=== PATIENT | male | born 1965 | race Caucasian/White ===

== ENCOUNTER 2025-08-04 22:25 | Inpatient (IN) | payer OTHER ==
--- OUTSIDE RECORDS SUMMARY | 2025-08-04 22:28 | XMS REPORT | Continuity of Care Document ---
Author Name Unknown Address [address] [facility] [address] [place] [address] Organization [facility] Address [address] [facility] [place] [address] Care Team Providers Care Sap Technical Architect Name Role Phone Pcp, Patient Does Not Have A Primary Care Physic martha DR FRANCISCO KIRK Attending Clinician Priscilla KIRK, DR SINGH Attending Clinician Priscilla Dey RN, Severiano Carl Attending Clinician Ja jaime Only, Ang Db Test Attending Clinician Isabel Trejo Attending Clinician [phone] ISABEL ESTRELLA Attending Clinician Tonja piedra Doctor Unassigned, [place] Attending Clinician U Marimar Patel Attending Clinician [phone] MARIMAR ALMENDAREZ Attending Clinician PILAR Bright Attending Clinician Tonja KIRK, DR SINGH Admitting Clinician Priscilla santos Payers Payer Name Policy Type Policy Number Effective Date Expirati on Date Source [id number] 1959 00:00:00 Problems Condition Name Condition Details Condition Category Status Onset Date Resolution Date Last Treatment Date Treating Clinician Comments Source Lumbar radiculopa thy Lumbar Radiculopa thy Problem Active 07-22 00:00: 00 [facility] Lumbar spondyloli sthesis Lumbar Spondyloli sthesis Problem Active 07-22 00:00: 00 [facility] Allergies, Adverse Reactions, Alerts Allergy Name Allergy Type Status Severity Reaction(s) Onset Date Inactive Date Treating Clinician Comments Source NO KNOWN ALLERGIE S Drug Class Active [facility] Social History Social Habit Start Date Stop Date Quantity Comments Source Exposure to SARS-CoV-2 (event) Yes [facility] Sex Assigned At 1965 00:00:00 1965 00:00:00 [facility] Smoking Status Start Date Stop Date Source Former Smoker [facility] Unknown if ever smoked [facility] Medications Ordered Medication Name Filled Medication Name Start Date Stop Date Current Medication? Ordering Clinician Indication Dosage Frequency Signature (SIG) Comments Components Source gabapentin 100 mg capsule TAKE 1 CAPSULE BY MOUTH THREE TIMES A DAY DIRECTED FOR 30 DAYS gabapentin 100 mg capsule TAKE 1 CAPSULE BY MOUTH THREE TIMES A DAY DIRECTED FOR 30 DAYS No gabapentin 100 mg capsule TAKE 1 CAPSULE BY MOUTH THREE TIMES A DAY DIRECTED FOR 30 DAYS [facility] lisinopril 20 mg-hydrochl orothiazide 12.5 mg tablet TAKE 1 TABLET BY MOUTH EVERY DAY DIRECTED lisinopril 20 mg-hydrochl orothiazide 12.5 mg tablet TAKE 1 TABLET BY MOUTH EVERY DAY DIRECTED No lisinopril 20 mg-hydroch lorothiazi de 12.5 mg tablet TAKE 1 TABLET BY MOUTH EVERY DAY DIRECTED [facility] methocarbam ol 500 mg tablet TAKE 1 TABLET BY MOUTH 3 TIMES A DAY FOR 10 DAYS methocarbam ol 500 mg tablet TAKE 1 TABLET BY MOUTH 3 TIMES A DAY FOR 10 DAYS No methocarba mol 500 mg tablet TAKE 1 TABLET BY MOUTH 3 TIMES A DAY FOR 10 DAYS [facility] methylpredn isolone 4 mg tablets in a dose pack PLEASE SEE ATTACHED FOR DETAILED DIRECTIONS methylpredn isolone 4 mg tablets in a dose pack PLEASE SEE ATTACHED FOR DETAILED DIRECTIONS No methylpred nisolone 4 mg tablets in a dose pack PLEASE SEE ATTACHED FOR DETAILED DIRECTIONS [facility] oseltamivir 75 mg capsule TAKE 1 CAPSULE BY MOUTH TWICE A DAY FOR 5 DAYS oseltamivir 75 mg capsule TAKE 1 CAPSULE BY MOUTH TWICE A DAY FOR 5 DAYS No oseltamivi r 75 mg capsule TAKE 1 CAPSULE BY MOUTH TWICE A DAY FOR 5 DAYS [facility] phentermine 37.5 mg capsule TAKE 1 TABLET BY MOUTH DAILY phentermine 37.5 mg capsule TAKE 1 TABLET BY MOUTH DAILY No phentermin e 37.5 mg capsule TAKE 1 TABLET BY MOUTH DAILY [facility] phentermine 37.5 mg tablet TAKE 1 ORAL TABLET EVERY MORNING BEFORE BREAKFAST FOR APPETITE SUPPRESSION ORAL ONCE A DAY 30 DAYS phentermine 37.5 mg tablet TAKE 1 ORAL TABLET EVERY MORNING BEFORE BREAKFAST FOR APPETITE SUPPRESSION ORAL ONCE A DAY 30 DAYS No phentermin e 37.5 mg tablet TAKE 1 ORAL TABLET EVERY MORNING BEFORE BREAKFAST FOR APPETITE SUPPRESSIO N ORAL ONCE A DAY 30 DAYS [facility] promethazin e-DM 6.25 mg-15 mg/5 mL oral syrup TAKE 5 ML (ORAL) EVERY 6 HOURS (COUGH) promethazin e-DM 6.25 mg-15 mg/5 mL oral syrup TAKE 5 ML (ORAL) EVERY 6 HOURS (COUGH) No promethazi ne-DM 6.25 mg-15 mg/5 mL oral syrup TAKE 5 ML (ORAL) EVERY 6 HOURS (COUGH) [facility] tadalafil 20 mg tablet TAKE 1 TABLET BY MOUTH 1 TO 2 HOURS PRIOR TO INTIMACY NEEDED tadalafil 20 mg tablet TAKE 1 TABLET BY MOUTH 1 TO 2 HOURS PRIOR TO INTIMACY NEEDED No tadalafil 20 mg tablet TAKE 1 TABLET BY MOUTH 1 TO 2 HOURS PRIOR TO INTIMACY NEEDED [facility] tizanidine 4 mg tablet TAKE 1 TABLET BY MOUTH EVERY 6 TO 8 HOURS NEEDED - MUSCLE SPASTICITY tizanidine 4 mg tablet TAKE 1 TABLET BY MOUTH EVERY 6 TO 8 HOURS NEEDED - MUSCLE SPASTICITY No tizanidine 4 mg tablet TAKE 1 TABLET BY MOUTH EVERY 6 TO 8 HOURS NEEDED - MUSCLE SPASTICITY [facility] acetaminoph en 300 mg-codeine 30 mg tablet TAKE 1 TABLET BY MOUTH THREE TIMES A DAY FOR 10 DAYS acetaminoph en 300 mg-codeine 30 mg tablet TAKE 1 TABLET BY MOUTH THREE TIMES A DAY FOR 10 DAYS No acetaminop hen 300 mg-codeine 30 mg tablet TAKE 1 TABLET BY MOUTH THREE TIMES A DAY FOR 10 DAYS [facility] anastrozole 1 mg tablet TAKE 1/2 TO 2 TABS BY MOUTH 24-48 HRS AFTER WEEKLY INJECTION. anastrozole 1 mg tablet TAKE 1/2 TO 2 TABS BY MOUTH 24-48 HRS AFTER WEEKLY INJECTION. No anastrozol e 1 mg tablet TAKE 1/2 TO 2 TABS BY MOUTH 24-48 HRS AFTER WEEKLY INJECTION. [facility] atorvastati n 40 mg tablet TAKE 1 TABLET BY MOUTH EVERY DAY IN THE EVENING FOR 90 DAYS atorvastati n 40 mg tablet TAKE 1 TABLET BY MOUTH EVERY DAY IN THE EVENING FOR 90 DAYS No atorvastat in 40 mg tablet TAKE 1 TABLET BY MOUTH EVERY DAY IN THE EVENING FOR 90 DAYS [facility] azithromyci n 250 mg tablet TAKE 2 TABLETS BY MOUTH TODAY, THEN TAKE 1 TABLET DAILY FOR 4 DAYS DIRECTED azithromyci n 250 mg tablet TAKE 2 TABLETS BY MOUTH TODAY, THEN TAKE 1 TABLET DAILY FOR 4 DAYS DIRECTED No azithromyc in 250 mg tablet TAKE 2 TABLETS BY MOUTH TODAY, THEN TAKE 1 TABLET DAILY FOR 4 DAYS DIRECTED [facility] diclofenac sodium 75 mg tablet,ronnie yed release TAKE 1 TABLET BY MOUTH TWICE A DAY diclofenac sodium 75 mg tablet,ronnie yed release TAKE 1 TABLET BY MOUTH TWICE A DAY No diclofenac sodium 75 mg tablet,del ayed release TAKE 1 TABLET BY MOUTH TWICE A DAY [facility] etodolac 400 mg tablet TAKE 1 TABLET BY MOUTH EVERY 8 HOURS NEEDED FOR PAIN etodolac 400 mg tablet TAKE 1 TABLET BY MOUTH EVERY 8 HOURS NEEDED FOR PAIN No etodolac 400 mg tablet TAKE 1 TABLET BY MOUTH EVERY 8 HOURS NEEDED FOR PAIN [facility] Procedures Procedure Date / Time Performed Performing Clinicia n Source ASSIGNMENT OF BENEFITS 2021-11-07 19:44:53 Docto r Unassigned, [place] [facility] Encounters Start Date/Time End Date/Time Encounter Type Admission Type Attending [facility] Care Facility Care Department Encounter ID Source 2024-07-21 00:00:00 2024-07-21 00:00:00 Mikala Graves, MANAGER RELOCATION: [address] [place] [address] , Ph. [id number] [facility] [id number] [facility] 2024-04-14 00:00:00 2024-04-14 00:00:00 Outpatient FRANCISCO DENNIS [facility] [id number] [facility] 2021-11-08 00:00:00 2021-11-08 00:00:00 Telephone Severiano Dey [facility] [id number] [facility] 2021-11-07 13:45:00 2021-11-07 14:00:00 Laboratory Only Only, Ang Db Test Delores [facility] 1..114 [id number] [facility] 2021-11-07 13:45:00 2021-11-07 13:45:00 Outpatient R DELORES, [facility] [id number] [facility] 2021-11-07 00:00:00 2021-11-07 00:00:00 Orders Only Doctor Unassigned, [place] [facility] [id number] [id number] [facility] 2021-11-01 12:45:00 2021-11-01 13:00:00 Laboratory Only Only, Ang Db Test [facility] [id number] [facility] 2021-11-01 12:45:00 2021-11-01 12:45:[address] [facility] [id number] [facility] 2021-11-01 00:00:00 2021-11-01 00:00:00 Letter (Out) Doctor Unassigned, [place] [facility] [id number] [id number] [facility] 2021-10-28 09:30:00 2021-10-28 09:30:00 Outpatient PILAR HOFFMAN [facility] [id number] [facility]
[2025-08-04] MEDS ORDERED: ONDANSETRON 4 MG/2 ML VIAL ONE (22:50)
[2025-08-04] MEDS ORDERED: MORPHINE 4 MG/ML SYR ONE (22:51)
[2025-08-04] MEDS ORDERED: NA CHLORIDE 0.9% 1,000 ML ONE (22:51)
[2025-08-04 23:35] LABS: Absolute Lymphocytes (CBC) 0.7 K/uL (0.7-4.9); Hematocrit 53.4 % (39.6-49.0); Hemoglobin 17.9 g/dL (13.6-17.9); MCH 33.2 pg (27.0-35.0); MCHC 33.5 g/dL (32.0-36.0); MCV 99.0 fL (80-100); MPV 7.9 fL (7.6-11.3); Nucleated RBC Absolute Count 0.0 (0-0); Nucleated Red Blood Cells % 0.1 % (0-0); RBC Red Blood Cell Count 5.39 M/uL (4.33-5.43); White Blood Count 13.90 thou/uL (4.3-10.9)
[2025-08-04 23:46] LABS: ALT/SGPT 21.0 U/L (16-61); AST/SGOT 14.0 U/L (15-37); Albumin 3.0 g/dL (3.4-5.0); Albumin/Globulin Ratio 0.8 (1.1-1.8); Alkaline Phosphatase 48.0 U/L (45-117); Anion Gap 12.8 mEq/L (5.0-15.0); BUN Blood Urea Nitrogen 16.0 mg/dL (7-18); Globulin 4.0 g/dL (2.3-3.5); Glucose Level 137.0 mg/dL (74-106); Lipase 24.0 U/L (13-75); Potassium 3.8 mEq/L (3.5-5.1)
[2025-08-05 00:02] LABS: Blood Morphology Comment NOT SEEN (NOT SEEN); Differential Total Cells Count 100; Segmented Neutrophils 67 % (40-80)
[2025-08-05 01:42] LABS: PT Prothrombin Time 15.2 SECONDS (10-13.0); PTT, Activated Partial Thromb 27.3 SECONDS (27.2-37.4); Protime INR 1.36
[2025-08-05] MEDS ORDERED: NA CHLORIDE 0.9% 1,000 ML ONE (02:23)
[2025-08-05] MEDS ORDERED: NA CHLORIDE 0.9% 50 ML ONE (02:37)
[2025-08-05] MEDS ORDERED: METRONIDAZOLE 500mg IVPB 500 MG/100 ML BAG IV ONE (02:37)
[2025-08-05] MEDS ORDERED: CEFTRIAXONE 1000 MG/VIAL ONE (02:37)
--- NOTE | 2025-08-05 02:44 | RAD REPORT ---
CLINICAL HISTORY: Abdominal pain. COMPARISON: CT Abdomen Pelvis 02/18/2019. TECHNIQUE: CT ABDOMEN PELVIS WITH IV CONTRAST on 08/04/2025 10:35 PM CDT This exam was performed according to our departmental dose-optimization program, which includes autom ated exposure control, adjustment of the mA and/or kV according to patient size and/or use of iterative reconstruction technique. FINDINGS: Lower lungs are clear. Abdomen: The liver is normal in appearance. There is no biliary dilatation. Gallbladder is normal in appearance. There is a small hiatal hernia. The pancreas and spleen are normal in appearance. Adrenal glands are normal. There are multiple bilateral renal cysts measuring up to 3.3 cm. There is no hydronephrosis. Abdominal aorta is normal in course and caliber without aneurysm. There is no free air. There is no r etroperitoneal adenopathy. Pelvis: There is moderate distal colonic diverticulosis. Urinary bladder is unremarkable. There is sm all amount of free pelvic fluid. The appendix is dilated measuring up to 1.4 cm with moderate surrounding inflammation. Skeleton: There are no acute osseous findings. No suspicious bony lesions. IMPRESSION: Acute appendicitis. Electronically signed by: Mitch Tao MD 08/05/2025 02:28 AM CDT RP Due to temporary technical issues with the PACS/Concuity reporting system, reports are being manny d by the in-house radiologist without review as a courtesy to ensure prompt reporting the interpreting radiologist is fully responsible for the content of the report. Transcribed Date/Time: 08/05/2025 2:43 AM
--- NOTE | 2025-08-05 03:13 | EDPHYS ---
Physician Documentation [facility] Name: Dustin Brothers Age: 59 yrs Sex: Male : 1965 Arrival Date: 08/04/2025 Time: 22:25 Bed 4 Private MD: ED Physician Angel Rogers HPI: 08/04 22:40 This 59 yrs old Male presents to ER via Wheelchair with complaints of Abdominal Pain. sb4 22:40 The patient presents with abdominal pain that is diffuse. Onset: The symptoms/episode sb4 began/occurred just prior to arrival. The symptoms do not radiate. Associated signs and symptoms: none. Patient reports diffuse abdominal pain that began this evening. States that he ate 4 egg rolls from [employer] and his pain began shortly after. Denies any nausea vomiting diarrhea. Denies any prior abdominal issues. Only medical history is high blood pressure and hyperlipidemia. states that he has been under a lot of stress and filed for divorce today. Historical: - Allergies: 22:35 No Known Allergies; cp4 - Immunization history:: Adult Immunizations up to date. - Infectious Disease History:: Denies. - Social history:: Smoking status: Patient denies any tobacco usage or history of. ROS: 22:40 Constitutional: Negative for fever, chills, and weight loss, sb4 22:40 Abdomen/GI: Positive for abdominal pain, 22:40 All other systems are negative, Exam: 22:40 Head/Face: Normocephalic, atraumatic. Eyes: Extra-ocular motions intact. Periorbital sb4 areas with no swelling, redness, or edema. ENT: Mucous membranes moist. Cardiovascular: Regular rate and rhythm with a normal S1 and S2. Respiratory: No increased work of breathing, no retractions or nasal flaring. Skin: Warm, dry with normal turgor. Normal color with no rashes, no lesions, and no evidence of cellulitis. 22:40 Constitutional: The patient appears alert, awake, in obvious pain, uncomfortable, 22:40 Abdomen/GI: Inspection: distension, Bowel sounds: diminished, in the right lower quadrant and left lower quadrant, Palpation: mild abdominal tenderness, in all quadrants, Vital Signs: 22:33 BP 94 / 80; Pulse 106; Resp 20; Temp 99.4; Pulse Ox 98% ; Weight 90.72 kg; Height 5 ft. cp4 10 in. ; Pain 8/10; 23:00 BP 137 / 81; Pulse 106; Resp 20; Pulse Ox 98% on R/A; kd3 23:34 BP 148 / 79; Pulse 108; Resp 19; Pulse Ox 98% on 4 lpm NC; kd3 08/05 01:19 BP 137 / 77; Pulse 107; Resp 19; Pulse Ox 95% on 4 lpm NC; kd3 04:44 BP 110 / 70; Pulse 93; Resp 16; Pulse Ox 93% on R/A; al5 08/04 22:33 Body Mass Index 28.70 (90.72 kg, 177.8 cm) cp4 08/04 22:33 Pain Scale: Adult cp4 MDM: 08/04 22:29 Medical Screening Exam initiated sb4 08/05 01:24 Differential diagnosis: appendicitis, bowel obstruction, cholecystitis, Cholelithiasis, sb4 diverticulitis, non-specific abd pain, pancreatitis, Peptic Ulcer Disease, Ureterolithiasis. Historians other than the Patient: Spouse/Significant Other: . 03:06 ED course: FINDINGS: Lower lungs are clear. Abdomen: The liver is normal in appearance. sp4 There is no biliary dilatation. Gallbladder is normal in appearance. There is a small hiatal hernia. The pancreas and spleen are normal in appearance. Adrenal glands are normal. There are multiple bilateral renal cysts measuring up to 3.3 cm. There is no hydronephrosis. Abdominal aorta is normal in course and caliber without aneurysm. There is no free air. There is no retroperitoneal adenopathy. Pelvis: There is moderate distal colonic diverticulosis. Urinary bladder is unremarkable. There is small amount of free pelvic fluid. The appendix is dilated measuring up to 1.4 cm with moderate surrounding inflammation. Skeleton: There are no acute osseous findings. No suspicious bony lesions. IMPRESSION: Acute appendicitis. Electronically signed by: Mitch Tao MD 08/05/2025 02:28 AM. 03:12 Data reviewed: vital signs, nurses notes, lab test result(s), radiologic studies, CT sp4 scan. 03:13 Consideration of Admission/Observation Patient was admitted/placed on observation. sp4 Escalation of care including admission/observation considered. Management of patient was discussed with the following: Hospitalist: Ildefonso. [employer] Supervisor: Davie [facility] . 10/07 22:35 Order name: CBC with Diff; Complete Time: 00:11 sb4 08/04 22:35 Order name: CMP; Complete Time: 23:47 sb4 08/04 22:35 Order name: Lipase; Complete Time: 23:47 sb4 08/04 23:45 Order name: Manual Differential; Complete Time: 00:11 EDMS 08/05 00:43 Order name: Blood Culture Adult (2) sb4 08/05 00:43 Order name: Lactate w/ 2H reflex if indic.; Complete Time: 01:57 sb4 08/05 00:43 Order name: Protime (+inr); Complete Time: 01:43 sb4 08/05 00:43 Order name: Ptt, Activated; Complete Time: 01:43 sb4 08/05 03:37 Order name: CBC with Automated Diff EDMS 08/05 03:37 Order name: CBC with Automated Diff EDMS 08/05 03:37 Order name: Comprehensive Metabolic Panel EDMS 08/05 03:37 Order name: Comprehensive Metabolic Panel EDMS 08/04 22:35 Order name: CT Abd/Pelvis - IV Contrast Only; Complete Time: 03:06 sb4 08/04 22:35 Order name: IV Saline Lock; Complete Time: 23:01 sb4 08/04 22:35 Order name: Labs collected and sent; Complete Time: 23:01 4 08/05 02:23 Order name: NPO; Complete Time: 04:12 sp4 Administered Medications: 08/04 23:01 Drug: Ondansetron IVP 4 mg IVP once; over 2 minutes Route: IVP; Site: right upper arm; kd3 08/05 01:48 Follow up: Response: No adverse reaction [facility] 08/04 23:01 Drug: morphine IVP or IV 4 mg IVP once over 4 mins Route: IVP; Infused Over: 4 mins; kd3 Site: right upper arm; 08/05 01:48 Follow up: Response: No adverse reaction [facility] 08/04 23:01 Drug: NS 0.9% IV 1000 ml IV at 1 bolus Per protocol; to be given as a bolus over 60 kd3 minutes Route: IV; Rate: 1 bolus; Site: right upper arm; 08/05 02:30 Follow up: Response: No adverse reaction; IV Status: Completed infusion; IV Intake: al5 1000ml 02:27 Drug: NS 0.9% IV 1000 ml IV at 1000 ml once; to be given as a bolus over 60 minutes al5 Route: IV; Rate: 1000 ml; Site: right upper arm; 03:40 Follow up: Response: No adverse reaction; IV Status: Completed infusion; IV Intake: al5 1000ml 02:43 Drug: Rocephin - Rocephin (cefTRIAXone) IVPB 1 grams IVPB once over 30 mins; (mix in 50 al5 mL NS) Route: IVPB; Infused Over: 30 mins; Site: right upper arm; 03:21 Follow up: Response: No adverse reaction; IV Status: Completed infusion; IV Intake: [id number] 03:21 Drug: metroNIDAZOLE IVPB 500 mg 100 ml IVPB at 200 ml/hr once over 30 mins Volume: 100 al5 ml; Route: IVPB; Rate: 200 ml/hr; Infused Over: 30 mins; Site: right upper arm; 04:30 Follow up: Response: No adverse reaction; IV Status: Completed infusion al5 04:00 Drug: D5-1/2 NS IV 1000 ml IV at 125 ml/hr continuous Route: IV; Rate: 125 ml/hr; Site: kb4 left antecubital; 04:45 Follow up: Response: No adverse reaction; IV Status: Infusion continued upon admission al5 Disposition: 03:11 Co-signature as Attending Physician, Angel Rogers MD I agree with the assessment sp4 and plan of care. I reviewed the patient's care provided by Advanced Practice Provider \T\ agree w/ the diagnosis \T\ care plan. I personally saw the pt \T\ performed a substantive portion of the visit, incldng all aspects of the (History/Exam/Medical Decision Making). Disposition Summary: 08/05/25 03:12 Hospitalization Ordered Notes: Hospitalization Status: Observation sp4 Provider: Burke Fregoso spMarquise Location: Telemetry/MedSurg (observation) sp4 Condition: Stable sp4 Problem: new sp4 Symptoms: have improved sp4 Bed/Room Type: Standard sp4 Room Assignment: 424(08/05/25 04:05) al5 Diagnosis - Acute appendicitis sp4 Forms: - Medication Reconciliation Form sp4 - SBAR form sp4 - Leadership Thank You Letter sp4 Signatures: [facility] Zoya Sandoval, RN RN kd3 Ernestine Demarco, PA-C PA-C sb4 Angel Rogers MD MD sp4 Norah Monterroso cp4 Lakshmi Bates RN RN al5 Vivi Degroot RN RN kb4 Corrections: (The following items were deleted from the chart) 00:44 00:44 BLOOD CULTURE*+BA.LAB.BRZ ordered. EDMS EDMS 00:44 00:44 LACTATE+C.LAB.BRZ ordered. EDMS EDMS 00:44 00:44 PROTIME (+INR)+COAG.LAB.BRZ ordered. EDMS EDMS 00:44 00:44 PTT, ACTIVATED+COAG.LAB.BRZ ordered. EDMS EDMS 04:05 03:12 sp4 al5
--- NOTE | 2025-08-05 03:13 | ER ---
Nurse's Notes [facility] Name: Dustin Brothers Age: 59 yrs Sex: Male : 1965 Arrival Date: 08/04/2025 Time: 22:25 Bed 4 Private MD: Diagnosis: Acute appendicitis Presentation: 08/04 22:33 Chief complaint: Patient states: abdominal pain that started after eating eggrolls. cp4 Coronavirus screen: Client denies travel out of the [place] in the last 14 days. At this time, the client does not indicate any symptoms associated with coronavirus-19. Ebola Screen: Patient negative for fever greater than or equal to 101.5 degrees Fahrenheit, and additional compatible Ebola Virus Disease symptoms Patient denies exposure to infectious person. Patient denies travel to an Ebola-affected area in the 21 days before illness onset. No symptoms or risks identified at this time. Initial Sepsis Screen: Does the patient meet any 2 criteria? HR > 90 bpm. No. Patient's initial sepsis screen is negative. Does the patient have a suspected source of infection? No. Patient's initial sepsis screen is negative. Risk Assessment: Do you want to hurt yourself or someone else? Patient reports no desire to harm self or others. Onset of symptoms was August 04, 2025. 22:33 Method Of Arrival: Wheelchair cp4 22:33 Acuity: ISAIAH 3 cp4 Triage Assessment: 22:35 General: Appears in no apparent distress. uncomfortable, Behavior is calm, cooperative, cp4 appropriate for age. Pain: Complains of pain in abdomen. GI: Reports lower abdominal pain, upper abdominal pain, diarrhea. Historical: - Allergies: 22:35 No Known Allergies; cp4 - Immunization history:: Adult Immunizations up to date. - Infectious Disease History:: Denies. - Social history:: Smoking status: Patient denies any tobacco usage or history of. Screenin:[address] [facility] ED Fall Risk Assessment (Adult) History of falling in the last 3 months, kd3 including since admission No falls in past 3 months (0 pts) Confusion or Disorientation No (0 pts) Intoxicated or Sedated No (0 pts) Impaired Gait No (0 pts) Mobility Assist Device Used No (0 pt) Altered Elimination No (0 pt) Score/Fall Risk Level 0 - 2 = Low Risk Maintained a safe environment. Abuse screen: Denies threats or abuse. Denies injuries from another. Nutritional screening: No deficits noted. Tuberculosis screening: No symptoms or risk factors identified. Assessment: 23:01 General: Appears uncomfortable, Behavior is calm, cooperative. Pain: Complains of pain kd3 in abdomen. Neuro: Level of Consciousness is awake, alert, obeys commands, Oriented to person, place, time, situation. Cardiovascular: Capillary refill < 3 seconds Patient's skin is warm and dry. Respiratory: Airway is patent Trachea midline Respiratory effort is even, unlabored, Respiratory pattern is regular, symmetrical. 23:03 GI: Bowel sounds present X 4 quads. Abdomen is tender to palpation in left lower kd3 quadrant and right lower quadrant. 08/05 02:27 General: Appears in no apparent distress. comfortable, Behavior is calm, cooperative. al5 Pain: Complains of pain in right lower quadrant Pain currently is 3 out of 10 on a pain scale. Neuro: Level of Consciousness is awake, alert, obeys commands, Oriented to person, place, time, situation. Cardiovascular: Capillary refill < 3 seconds Patient's skin is warm and dry. Respiratory: Airway is patent Respiratory effort is even, unlabored, Respiratory pattern is regular, symmetrical. GI: Abdomen is non-distended. : No signs and/or symptoms were reported regarding the genitourinary system. EENT: No signs and/or symptoms were reported regarding the EENT system. Derm: Skin is intact, is healthy with good turgor, Skin is pink, warm \T\ dry. normal. Musculoskeletal: Circulation, motion, and sensation intact. Range of motion: intact in all extremities. 03:21 Reassessment: Patient appears in no apparent distress at this time. No changes from al5 previously documented assessment. Patient and/or family updated on plan of care and expected duration. Pain level reassessed. Patient is alert, oriented x 3, equal unlabored respirations, skin warm/dry/pink. 04:39 Reassessment: Patient appears in no apparent distress at this time. No changes from al5 previously documented assessment. Patient and/or family updated on plan of care and expected duration. Pain level reassessed. Patient is alert, oriented x 3, equal unlabored respirations, skin warm/dry/pink. Vital Signs: 08/04 22:33 BP 94 / 80; Pulse 106; Resp 20; Temp 99.4; Pulse Ox 98% ; Weight 90.72 kg; Height 5 ft. cp4 10 in. ; Pain 8/10; 23:00 BP 137 / 81; Pulse 106; Resp 20; Pulse Ox 98% on R/A; kd3 23:34 BP 148 / 79; Pulse 108; Resp 19; Pulse Ox 98% on 4 lpm NC; kd3 08/05 01:19 BP 137 / 77; Pulse 107; Resp 19; Pulse Ox 95% on 4 lpm NC; kd3 04:44 BP 110 / 70; Pulse 93; Resp 16; Pulse Ox 93% on R/A; al5 08/04 22:33 Body Mass Index 28.70 (90.72 kg, 177.8 cm) cp4 08/04 22:33 Pain Scale: Adult cp4 ED Course: 08/04 22:26 Patient arrived in ED. mr 22:26 Ernestine Demarco PA-C is PHCP. sb4 22:26 Ruth Klein MD is Attending Physician. sb4 22:35 Triage completed. cp4 22:35 Arm band placed on right wrist. Patient placed in waiting room. cp4 22:45 Angel Rogers MD is Attending Physician. sb4 22:47 Zoya Sandoval, GENA is Primary Nurse. kd3 23:00 No provider procedures requiring assistance completed. Inserted saline lock: 18 gauge kd3 in right upper arm, using aseptic technique. Blood collected. Flushed with 10 mL NS. 23:01 CBC with Diff Sent. kd3 23:01 CMP Sent. kd3 23:01 Lipase Sent. kd3 08/05 00:33 CT Abd/Pelvis - IV Contrast Only In Process Unspecified. EDMS 01:05 Inserted saline lock: 18 gauge in left upper arm, using aseptic technique. Blood kd3 collected. Flushed with 10 mL NS. 01:19 Blood Culture Adult (2) Sent. kd3 01:19 Lactate w/ 2H reflex if indic. Sent. kd3 01:19 Protime (+inr) Sent. kd3 01:19 Ptt, Activated Sent. kd3 03:11 Burke Fregoso MD is Hospitalizing Provider. sp4 04:42 Patient admitted, IV remains in place. al5 04:43 Patient has correct armband on for positive identification. Provided Education on: NPO al5 status. Administered Medications: 08/04 23:01 Drug: Ondansetron IVP 4 mg IVP once; over 2 minutes Route: IVP; Site: right upper arm; kd3 08/05 01:48 Follow up: Response: No adverse reaction [facility] 08/04 23:01 Drug: morphine IVP or IV 4 mg IVP once over 4 mins Route: IVP; Infused Over: 4 mins; kd3 Site: right upper arm; 08/05 01:48 Follow up: Response: No adverse reaction [facility] 08/04 23:01 Drug: NS 0.9% IV 1000 ml IV at 1 bolus Per protocol; to be given as a bolus over 60 kd3 minutes Route: IV; Rate: 1 bolus; Site: right upper arm; 08/05 02:30 Follow up: Response: No adverse reaction; IV Status: Completed infusion; IV Intake: al5 1000ml 02:27 Drug: NS 0.9% IV 1000 ml IV at 1000 ml once; to be given as a bolus over 60 minutes al5 Route: IV; Rate: 1000 ml; Site: right upper arm; 03:40 Follow up: Response: No adverse reaction; IV Status: Completed infusion; IV Intake: al5 1000ml 02:43 Drug: Rocephin - Rocephin (cefTRIAXone) IVPB 1 grams IVPB once over 30 mins; (mix in 50 al5 mL NS) Route: IVPB; Infused Over: 30 mins; Site: right upper arm; 03:21 Follow up: Response: No adverse reaction; IV Status: Completed infusion; IV Intake: [id number] 03:21 Drug: metroNIDAZOLE IVPB 500 mg 100 ml IVPB at 200 ml/hr once over 30 mins Volume: 100 al5 ml; Route: IVPB; Rate: 200 ml/hr; Infused Over: 30 mins; Site: right upper arm; 04:30 Follow up: Response: No adverse reaction; IV Status: Completed infusion al5 04:00 Drug: D5-1/2 NS IV 1000 ml IV at 125 ml/hr continuous Route: IV; Rate: 125 ml/hr; Site: [facility] left antecubital; 04:45 Follow up: Response: No adverse reaction; IV Status: Infusion continued upon admission al5 Medication: 08/04 23:02 VIS not applicable for this client. kd3 Intake: 08/05 02:30 IV: 1000ml; Total: 1000ml. al5 03:21 IV: 50ml; Total: 1050ml. al5 03:40 IV: 1000ml; Total: 2050ml. al5 Outcome: 03:12 Decision to Hospitalize by Provider. sp4 04:43 Admitted to Med/surg accompanied by tech, via stretcher, room 424, with chart, al5 04:43 Condition: stable 04:43 Instructed on the need for admit, 04:49 Patient left the ED. al5 Signatures: Dispatcher [employer] EDMO AndersonNatasha calle, Reg Reg mr LoriZoya, RN RN kd3 Ernestine Demarco, PA-C PA-C Angel Puentes MD MD sp4 Norah Monterroso Amanda RN RN al5 Vivi Degroot, RN RN kb4
--- NOTE | 2025-08-05 03:33 | P.HP ---
Certification for Inpatient Patient admitted to: Inpatient With expected LOS: >2 Midnights Practitioner: I am a practitioner with admitting privileges, knowledge of patient current condition, hospital course, and medical plan of care. Services: Services provided to patient in accordance with Admission requirements found in Title 42 Section 412.3 of the Code of Federal Regulations Patient History Date of Service: 08/05/25 Reason for admission: Abdominal Pain History of Present Illness: 59 yrs old Male with past medical history of hypertension and hyperlipidemia was brought to ER with abdominal pain. Abdominal pain started today. Insidious in onset. Started diffusely. Sharp 4 out of 10 in severity at the time of interview does not radiate. Not associated with any fever or chills. No nausea vomiting or diarrhea . Patient reports diffuse abdominal pain that began this evening. States that he ate 4 egg rolls from [employer] and his pain began shortly after. Denies any prior abdominal issues. Patient was assessed in the ER and was admitted for further management of acute appendicitis Allergies No Known Allergies Allergy (Unverified 03/14/16 03:06) Home medications list reviewed: Yes Home Medications: Atorvastatin Calcium 40 mg PO BEDTIME 08/05/25 Bupropion *Xl* [Wellbutrin XL] 150 mg PO DAILY 08/05/25 Lisinopril/Hydrochlorothiazide [Lisinopril-Hctz 20-12.5 mg Tab] 1 each PO DAILY 08/05/25 - Past Medical/Surgical History Past Medical History: Reviewed- Non-Contributory -: Hypertension, hyperlipidemia Past Surgical History: Reviewed- Non-Contributory - Social History Smoking Status: Never smoker Review of Systems 10-point ROS is otherwise unremarkable Physical Examination - Vital Signs Temperature: 99.4 F Blood Pressure: 94/80 Pulse: 106 Respirations: 18 Pulse Ox (%): 94 - Physical Exam General: Alert, In no apparent distress, Oriented x3 HEENT: Atraumatic, Normocephalic Neck: Supple Respiratory: Clear to auscultation bilaterally, Normal air movement Cardiovascular: Regular rate/rhythm, Normal S1 S2 Capillary refill: <2 Seconds Gastrointestinal: Soft and benign, W/out hepatosplenomegaly, Tenderness Musculoskeletal: No clubbing Integumentary: No rashes Neurological: Other (Alert awake nonfocal) Lymphatics: No axilla or inguinal lymphadenopathy - Studies Laboratory Data (last 24 hrs) 08/05/25 08/04/25 08/04/25 01:00 23:08 23:08 WBC 13.90 H Hgb 17.9 Hct 53.4 H Plt Count 314 PT 15.2 H INR 1.36 APTT 27.3 Sodium 138 Potassium 3.8 BUN 16 Creatinine 1.34 H Glucose 137 H Total Bilirubin 1.0 AST 14 L ALT 21 Alkaline Phosphatase 48 Lipase 24 Assessment and Plan - Plan Acute appendicitis Pain control CT findings noted consistent with acute appendicitis Started on IV antibiotic Surgical consult May need laparoscopic appendectomy Hypertension Antihypertensives titrated Continue home medications and titrate as needed Hyperlipidemia Continue statin GI/DVT prophylaxis Advanced directive full code Discharge Plan: Home Plan to discharge in: 48 Hours - Advance Directives Does patient have a Living Will: No Does patient have a Durable POA for Healthcare: No - Code Status/Comfort Care Code Status: Full Code Time Spent Managing Pts Care (In Minutes): 48
[2025-08-05] MEDS ORDERED: ONDANSETRON 4 MG/2 ML VIAL IV PRN (03:34)
[2025-08-05] MEDS ORDERED: ACETAMINOPHEN 325 MG TABLET PO PRN (03:34)
[2025-08-05] MEDS ORDERED: D5 0.45 NS 1,000 ML IV ONE (03:56)
[2025-08-05] MEDS: NA CHLORIDE 0.9% 1,000 ML IV SCH (04:00)
[2025-08-05] MEDS ORDERED: MORPHINE 2 MG/ML SYR IV PRN (05:35)
[2025-08-05] MEDS ORDERED: ROCURONIUM 50 MG/5 ML VIAL IV ONE ×2 (08:04→09:32)
[2025-08-05] MEDS ORDERED: NEOSTIGMINE 1 MG/ML -10 ML VIAL ONE (08:04)
[2025-08-05] MEDS ORDERED: GLYCOPYRROLATE 0.2 MG/ML SYR ONE (08:04)
[2025-08-05] MEDS ORDERED: ONDANSETRON 4 MG/2 ML VIAL ONE (08:10)
[2025-08-05] MEDS ORDERED: LIDOCAINE 2% MPF 5 ML VIAL ONE (08:10)
[2025-08-05] MEDS ORDERED: FENTANYL CITR 100 MCG/2 ML ONE ×2 (08:10→09:23)
[2025-08-05] MEDS ORDERED: MIDAZOLAM HCL 2 MG/2 ML INJ ONE (08:10)
[2025-08-05] MEDS: Ringers Lactate 1,000 ML IV ONE ×2 (08:45→10:44)
[2025-08-05] MEDS: PIPER TAZO 3.375 GM in NA CHLORIDE 0.9% 100 ML IV SCH (09:00)
--- NOTE | 2025-08-05 09:29 | CON ---
Date of Consultation: 08/05/2025 Reason For Service: Acute appendicitis. History Of Present Illness: This is a case of a 59-year-old patient comes to us with abdominal pain that started last night, started diffuse, moved to the right lower quadrant associated with nausea, n o vomiting. No diarrhea. The pain got worse. He came to the ER this morning, diagnosed with acute appendicitis and a surgical consult was obtained. Review of Systems: Denies any dysuria, hematuria, hematochezia, melena. Denies any recent traveling out of the country. Denies any family member sick at home. Family History: Noncontributory. Allergies: NONE. Past Medical History: Hypertension. No previous colonoscopies. The patient is advised about colono scopies. Physical Examination: Vital signs: Reviewed. General: The patient is awake, alert. HEENT: Pupils are equal and reactive. Anicteric. Neck: Supple. Chest: Clear. Heart: S1, S2. Abdomen: Soft and depressible. There is right lower quadrant tenderness with psoas signs positive a nd Rovsing sign positive. Genitalia and Rectal: Deferred. Extremities: Good capillary refill. Laboratory Data: Blood work shows WBC count of 13 with hemoglobin of 17.9. INR is 1.36. Potassium 3.8 and creatinine is 1.34. CAT scan shows acute appendicitis by radiologist. Assessment: This is the case of a 59-year-old patient with acute appendicitis. Benefits, alternativ es, and risks of laparoscopic, possible open appendectomy were fully explained, which include, but no t limited to infection, bleeding, damage to adjacent structures, anesthesia complication, negative ap pendix, MS, and even . He also understands this may not relieve symptoms, he might need more th an one surgical intervention. He also has been having some periumbilical pain. He thinks might have a hernia in that area. I explained to him that we may or may not be able to fix it depends on the s ize. TANIA/LIANNA Voice ID: [id number] Report ID: [id number]
--- NOTE | 2025-08-05 10:00 | P.BOP ---
Preoperative diagnosis: Acute abdominal pain . peritonitis Postoperative diagnosis: Perforated acute appendicitis with intrabdominal absc ess, peritonitis, Primary procedure: 1. Laparoscopic appendectomy with Secondary procedure: 2. drainage of intrabdominal abscess Other procedure(s): 3. Open umbilical reducible hernia repair 2 cm Estimated blood loss: <50cc Specimen: perforated appendix Findings: Perforated appendix, intrabdominal abscess with reactive proctitis, Anesthesia: General Complications: None Drain(s): VICKY drain Fluids & blood products: abdomen irrigated with 8 lites of saline Transferred to: Recovery Room Condition: Good
--- NOTE | 2025-08-05 12:46 | P.PN ---
Date of Service: 08/05/25 Subjective: RLQ pain Physical Exam: GEN: Alert, oriented, NAD CV: Regular rate and rhythm, no edema Pulm: Nonlabored respirations on room air ABD: soft, abdominal tenderness, dressing in place Neuro: Normal speech, normal affect Problem List: Acute perforated appendicitis with intraabdominal abscess and peritonitis s/p lap appy with drainage of intraabdominal abscess (08/05) Reducible umbilical hernia 2cm s/p open repair (08/05) on admission, presents with worsening abdominal pain. Started shortly after eating a meal. CT findings noted consistent with acute appendicitis Dr. Broderick is following. found to have perforated appendix, intrabdominal abscess with reactive proctitis, peritonitis during surgery today s/p lap appy with drainage of intraabdominal abscess and open repair of reducible umbilical hernia 2cm VICKY drain placed Diet and wound care per surgery Continue IV zosyn (08/05-) IV fluids, pain control VTE: SCD Code: Full Dispo: Home, several days Time Spent Managing Pts Care (In Minutes): 55
[2025-08-05 13:26] LABS: Absolute Lymphocytes (CBC) 0.4 K/uL (0.7-4.9); Hematocrit 50.1 % (39.6-49.0); Hemoglobin 16.5 g/dL (13.6-17.9); MCH 33.1 pg (27.0-35.0); MCHC 32.9 g/dL (32.0-36.0); MCV 100.4 fL (80-100); MPV 7.8 fL (7.6-11.3); Nucleated RBC Absolute Count 0.0 (0-0); Nucleated Red Blood Cells % 0.0 % (0-0); RBC Red Blood Cell Count 4.99 M/uL (4.33-5.43); White Blood Count 17.20 thou/uL (4.3-10.9)
[2025-08-05] MEDS: HYDROCODONE/APAP 5/325 MG TAB PO PRN (21:42)
[2025-08-06 06:45] LABS: Absolute Lymphocytes (CBC) 0.9 K/uL (0.7-4.9); Hematocrit 49.2 % (39.6-49.0); Hemoglobin 16.5 g/dL (13.6-17.9); MCH 33.6 pg (27.0-35.0); MCHC 33.5 g/dL (32.0-36.0); MCV 100.3 fL (80-100); MPV 8.0 fL (7.6-11.3); Nucleated RBC Absolute Count 0.0 (0-0); Nucleated Red Blood Cells % 0.0 % (0-0); RBC Red Blood Cell Count 4.91 M/uL (4.33-5.43); White Blood Count 16.20 thou/uL (4.3-10.9)
--- NOTE | 2025-08-06 07:18 | P.PN ---
Date of Service: 08/06/25 Subjective: pain tolerable with oral norco <100mL via VICKY drain overnight vitals stable tolerating ice chips, sips of water Physical Exam: GEN: Alert, oriented, NAD CV: Regular rate and rhythm, no edema Pulm: Nonlabored respirations on room air ABD: soft, abdominal soreness, dressing in place Neuro: Normal speech, normal affect Problem List: Acute perforated appendicitis with intraabdominal abscess and peritonitis s/p lap appy with drainage of intraabdominal abscess (08/05) Reducible umbilical hernia 2cm s/p open repair (08/05) on admission, presents with worsening abdominal pain. Started shortly after eating a meal. CT findings noted consistent with acute appendicitis Dr. Broderick is following. found to have perforated appendix, intrabdominal abscess with reactive proctitis, peritonitis during surgery s/p lap appy with drainage of intraabdominal abscess and open repair of reducible umbilical hernia 2cm VICKY drain placed; 90mL output overnight Diet and wound care per surgery; advance to CLD IV fluids, pain control Continue IV zosyn (08/05-) ID consulted Follow blood cultures Leukocytosis slightly improved, afebrile VTE: SCD Code: Full Dispo: Home, several days pending tolerating diet, ID recs, leukocytosis resolves Time Spent Managing Pts Care (In Minutes): 55
[2025-08-06 07:24] LABS: ALT/SGPT 16.0 U/L (16-61); AST/SGOT 11.0 U/L (15-37); Albumin 2.2 g/dL (3.4-5.0); Albumin/Globulin Ratio 0.6 (1.1-1.8); Alkaline Phosphatase 40.0 U/L (45-117); Anion Gap 9.3 mEq/L (5.0-15.0); BUN Blood Urea Nitrogen 14.0 mg/dL (7-18); Globulin 3.6 g/dL (2.3-3.5); Glucose Level 98.0 mg/dL (74-106); Potassium 4.3 mEq/L (3.5-5.1)
[2025-08-06] MEDS ORDERED: MORPHINE 4 MG/ML SYR IV PRN (10:18)
--- NOTE | 2025-08-06 12:29 | P.PN ---
Subjective Date of Service: 08/06/25 Chief Complaint: acute perforated appendicitis, intrabdominal abscess, peritonitis, colitis Subjective: Ambulating, Improving Review of Systems General: Weakness, Malaise Respiratory: Unremarkable Cardiovascular: Unremarkable Gastrointestinal: Abdominal Pain, Distention Genitourinary: Unremarkable Physical Examination - Vital Signs Temperature: 98.2 F Blood Pressure: 139/65 Pulse: 86 Respirations: 18 Pulse Ox (%): 95 - Physical Exam General: Alert, In no apparent distress, Oriented x3 HEENT: Normocephalic, PERRLA, EOMI Neck: Supple Respiratory: Clear to auscultation bilaterally Gastrointestinal: Hypoactive, Distended Musculoskeletal: No erythema, No tenderness, No warmth Integumentary: No rashes Assessment And Plan - Plan ID consult only clear as this point cont abx oob incent. Spir
[2025-08-06] MEDS: MAGNESIUM SULFATE 1 gm IVPB 1 GM/100 ML BAG IV ONE (16:46)
--- NOTE | 2025-08-06 20:09 | CON ---
History Of Present Illness: This is a 59-year-old male. I was consulted for acute appendicitis and intraabdominal abscess, status post surgical intervention. The patient has significant past medical history of hypertension and hyperlipidemia, coming in with abdominal pain worsening over a few hours. The patient was admitted for further evaluation. He underwent surgical intervention for acute perf orated appendicitis with intraabdominal abscess and peritonitis, status post laparoscopic appendectom y with drainage of intraabdominal abscess on August 05. Also, had reducible umbilical hernia, status post open repair on August 05. The patient feels slightly better. Had 2 bowel movements a day, whi ch were loose. Past Medical History: As per HPI. Social History: Nonsmoker, nondrinker. Family History: Noncontributory. Medications: Zosyn. See MARs for other medications. Allergies: NO KNOWN DRUG ALLERGIES. Review of Systems: A 10-point review was performed. Physical Examination: General: This is a 59-year-old male, lying in bed, not in any acute cardiopulmonary distress. Vital Signs: Temperature 98, pulse 87, respirations 17, blood pressure 140/69. HEENT: Unremarkable. Neck: Supple. Lungs: Basal crackles. Heart: S1, S2. Regular. Abdomen: Sluggish bowel sounds with tenderness in the right lower quadrant. VICKY drain noted. Extremities: No edema. Laboratory Data: Shows WBC 16.2, hemoglobin 16.5, platelets 235. Albumin level of 2.2. BUN of 16, creatinine 1.3. Blood cultures are showing no growth for 24 hours. Assessment And Plan: This is a safe 59-year-old male coming in with acute perforated appendicitis an d intraabdominal abscess with peritonitis, status post laparoscopic appendectomy with drainage of int raabdominal abscess done yesterday. Also, had reduction of umbilical hernia, status post open repair yesterday. 1. Leukocytosis. 2. Renal insufficiency, which has improved. 3. Moderate protein-calorie malnourishment. 4. Continue empiric antibiotic for at least 2 weeks and monitor signs of infection with WBC and fever trends. Thank you Dr. Jackson for consult. NF/MODL Voice ID: [id number] Report ID: [id number]
[2025-08-06] MEDS: LACTOBACILLUS/ACIDOPHILUS TAB PO SCH (20:44)
[2025-08-07 07:23] LABS: Magnesium 1.7 mg/dL (1.6-2.4)
[2025-08-07 07:27] LABS: Absolute Lymphocytes (CBC) 0.9 K/uL (0.7-4.9); Hematocrit 50.8 % (39.6-49.0); Hemoglobin 17.1 g/dL (13.6-17.9); MCH 33.5 pg (27.0-35.0); MCHC 33.7 g/dL (32.0-36.0); MCV 99.4 fL (80-100); MPV 8.0 fL (7.6-11.3); Nucleated RBC Absolute Count 0.0 (0-0); Nucleated Red Blood Cells % 0.0 % (0-0); RBC Red Blood Cell Count 5.11 M/uL (4.33-5.43); White Blood Count 14.20 thou/uL (4.3-10.9)
[2025-08-07 07:37] LABS: ALT/SGPT 17.0 U/L (16-61); AST/SGOT 15.0 U/L (15-37); Albumin 2.1 g/dL (3.4-5.0); Albumin/Globulin Ratio 0.5 (1.1-1.8); Alkaline Phosphatase 41.0 U/L (45-117); Anion Gap 12.7 mEq/L (5.0-15.0); BUN Blood Urea Nitrogen 7.0 mg/dL (7-18); Globulin 4.0 g/dL (2.3-3.5); Glucose Level 96.0 mg/dL (74-106); Potassium 3.7 mEq/L (3.5-5.1)
--- NOTE | 2025-08-07 12:37 | P.PN ---
Date of Service: 08/07/25 Subjective: feeling better today ambulating without issues VICKY drain with 45mL output afebrile Physical Exam: GEN: Alert, oriented, NAD CV: Regular rate and rhythm, no edema Pulm: Nonlabored respirations on room air ABD: soft, abdominal soreness, dressing in place Neuro: Normal speech, normal affect Problem List: Acute perforated appendicitis with intraabdominal abscess and peritonitis s/p lap appy with drainage of intraabdominal abscess (08/05) Reducible umbilical hernia 2cm s/p open repair (08/05) Gram positive bacteremia on admission, presents with worsening abdominal pain. Started shortly after eating a meal. CT findings noted consistent with acute appendicitis Dr. Broderick is following. found to have perforated appendix, intrabdominal abscess with reactive proctitis, peritonitis during surgery s/p lap appy with drainage of intraabdominal abscess and open repair of reducible umbilical hernia 2cm VICKY drain placed Diet and wound care per surgery; advance to [facility]D IV fluids, pain control Continue IV zosyn (08/05-) ID consulted Blood cultures prelim showing GPC in 1/4 bottles Leukocytosis slightly improved, afebrile VTE: SCD Code: Full Dispo: Home, several days pending tolerating diet, ID recs, leukocytosis resolves Time Spent Managing Pts Care (In Minutes): 55
--- NOTE | 2025-08-07 16:50 | P.PN ---
Date of Service: 08/07/25 subjective: report wbc trending down. report was able to used the restroom once today. denied NVD. afebrile Temp Pulse Resp BP Pulse Ox 98.8 F 80 18 161/82 H 98 08/07/25 16:00 08/07/25 16:00 08/07/25 16:00 08/07/25 16:00 08/07/25 16:00 Physical Exam: GEN: Alert, oriented, NAD CV: Regular rate and rhythm, no edema Pulm: Nonlabored respirations on room air ABD: soft, abdominal soreness, [address], IVCKY drain seen with very minimal light pink drainage Neuro: Normal speech, normal affect labs: wbc: 14.2, hgb 17.1, bun 7, cr 0.92. albumin 2.1 assessment and planning 1. 1/4 bottle GP bacteremia 2. Acute perforated appendicitis with intraabdominal abscess and peritonitis s/p lap appendectomy with drainage of intraabdominal abscess (08/05) 3. Reducible umbilical hernia 2cm s/p open repair (08/05) 4. leukocytosis ( improving) 5. moderate protein calorie malnourishment 1/4 bottles are growing gram positive cocci in pair and chain. awaiting for sensitivity/ recommend zosyn empirically for at least 2 weeks will continue to monitor for sign of infection with wbc and fever trend case discussed and in agreement with Dr velez
[2025-08-08 07:35] LABS: Absolute Lymphocytes (CBC) 1.0 K/uL (0.7-4.9); Hematocrit 52.2 % (39.6-49.0); Hemoglobin 17.9 g/dL (13.6-17.9); MCH 33.8 pg (27.0-35.0); MCHC 34.2 g/dL (32.0-36.0); MCV 98.9 fL (80-100); MPV 7.7 fL (7.6-11.3); Nucleated RBC Absolute Count 0.0 (0-0); Nucleated Red Blood Cells % 0.1 % (0-0); RBC Red Blood Cell Count 5.28 M/uL (4.33-5.43); White Blood Count 12.00 thou/uL (4.3-10.9)
[2025-08-08 07:45] LABS: ALT/SGPT 26.0 U/L (16-61); AST/SGOT 19.0 U/L (15-37); Albumin 2.0 g/dL (3.4-5.0); Albumin/Globulin Ratio 0.5 (1.1-1.8); Alkaline Phosphatase 42.0 U/L (45-117); Anion Gap 13.8 mEq/L (5.0-15.0); BUN Blood Urea Nitrogen 7.0 mg/dL (7-18); Globulin 4.1 g/dL (2.3-3.5); Glucose Level 95.0 mg/dL (74-106); Potassium 3.8 mEq/L (3.5-5.1)
--- NOTE | 2025-08-08 12:24 | P.PN ---
Date of Service: 08/08/25 Subjective: feeling better today no issues overnight pain improved afebrile Physical Exam: GEN: Alert, oriented, NAD CV: Regular rate and rhythm, no edema Pulm: Nonlabored respirations on room air ABD: soft, abdominal soreness, dressing in place Neuro: Normal speech, normal affect Problem List: Acute perforated appendicitis with intraabdominal abscess and peritonitis s/p lap appy with drainage of intraabdominal abscess (08/05) Reducible umbilical hernia 2cm s/p open repair (08/05) Gram positive bacteremia on admission, presents with worsening abdominal pain. Started shortly after eating a meal. CT findings noted consistent with acute appendicitis Dr. Broderick is following. found to have perforated appendix, intrabdominal abscess with reactive proctitis, peritonitis during surgery s/p lap appy with drainage of intraabdominal abscess and open repair of reducible umbilical hernia 2cm VICKY drain placed Diet and wound care per surgery; advance to [facility]D IV fluids, pain control Continue IV zosyn (08/05-) for now. Pending sensitivities ID consulted; recommending at least 2 weeks abx. Blood cultures prelim showing GPC in 1/4 bottles Leukocytosis slightly improved, afebrile VTE: SCD Code: Full Dispo: Home, several days pending tolerating diet, ID recs, leukocytosis resolves Time Spent Managing Pts Care (In Minutes): 55
[2025-08-08] MEDS: NA CHLORIDE 0.9% 1,000 ML IV SCH (15:48)
[2025-08-09 05:31] VITALS: BMI 30.3
[2025-08-09 07:19] LABS: Absolute Lymphocytes (CBC) 1.1 K/uL (0.7-4.9); Hematocrit 49.4 % (39.6-49.0); Hemoglobin 16.8 g/dL (13.6-17.9); MCH 33.4 pg (27.0-35.0); MCHC 34.1 g/dL (32.0-36.0); MCV 97.9 fL (80-100); MPV 7.9 fL (7.6-11.3); Nucleated RBC Absolute Count 0.0 (0-0); Nucleated Red Blood Cells % 0.1 % (0-0); RBC Red Blood Cell Count 5.05 M/uL (4.33-5.43); White Blood Count 11.00 thou/uL (4.3-10.9)
[2025-08-09 07:37] LABS: ALT/SGPT 36.0 U/L (16-61); AST/SGOT 24.0 U/L (15-37); Albumin 1.9 g/dL (3.4-5.0); Albumin/Globulin Ratio 0.5 (1.1-1.8); Alkaline Phosphatase 35.0 U/L (45-117); Anion Gap 8.4 mEq/L (5.0-15.0); BUN Blood Urea Nitrogen 7.0 mg/dL (7-18); Globulin 3.8 g/dL (2.3-3.5); Glucose Level 111.0 mg/dL (74-106); Potassium 3.4 mEq/L (3.5-5.1)
[2025-08-09] MEDS: NA CHLORIDE 0.9% 100 ML ONE (08:00)
--- NOTE | 2025-08-09 12:17 | P.PN ---
Date of Service: 08/09/25 Subjective: better 1 loose BM Physical Exam: GEN: Alert, oriented, NAD CV: Regular rate and rhythm, no edema Pulm: Nonlabored respirations on room air ABD: soft, nontender, dressing in place, VICKY drain in place Problem List: Acute perforated appendicitis with intraabdominal abscess and peritonitis s/p lap appy with drainage of intraabdominal abscess (08/05) Reducible umbilical hernia 2cm s/p open repair (08/05) Gram positive bacteremia on admission, presents with worsening abdominal pain. Started shortly after eating a meal. CT findings noted consistent with acute appendicitis Dr. Broderick is following. found to have perforated appendix, intrabdominal abscess with reactive proctitis, peritonitis during surgery s/p lap appy with drainage of intraabdominal abscess and open repair of reducible umbilical hernia 2cm VICKY drain placed Diet and wound care per surgery; advance to [facility] [place] repeat CT with PO contrast tomorrow IV fluids, pain control Continue IV zosyn (08/05-) for now. Pending sensitivities ID consulted; recommending at least 2 weeks abx. Blood cultures prelim showing GPC in 1/4 bottles - likely contaminant Leukocytosis slightly improved, afebrile VTE: SCD Code: Full Dispo: Home, several days pending tolerating diet, ID recs, leukocytosis resolves Time Spent Managing Pts Care (In Minutes): 55
[2025-08-10 06:39] LABS: Absolute Lymphocytes (CBC) 1.5 K/uL (0.7-4.9); Hematocrit 50.4 % (39.6-49.0); Hemoglobin 17.1 g/dL (13.6-17.9); MCH 33.3 pg (27.0-35.0); MCHC 33.8 g/dL (32.0-36.0); MCV 98.4 fL (80-100); MPV 7.6 fL (7.6-11.3); Nucleated RBC Absolute Count 0.0 (0-0); Nucleated Red Blood Cells % 0.0 % (0-0); RBC Red Blood Cell Count 5.12 M/uL (4.33-5.43); White Blood Count 10.40 thou/uL (4.3-10.9)
[2025-08-10 06:58] LABS: ALT/SGPT 38.0 U/L (16-61); AST/SGOT 22.0 U/L (15-37); Albumin 2.1 g/dL (3.4-5.0); Albumin/Globulin Ratio 0.5 (1.1-1.8); Alkaline Phosphatase 35.0 U/L (45-117); Anion Gap 9.5 mEq/L (5.0-15.0); BUN Blood Urea Nitrogen 6.0 mg/dL (7-18); Globulin 4.0 g/dL (2.3-3.5); Glucose Level 101.0 mg/dL (74-106); Potassium 3.5 mEq/L (3.5-5.1)
[2025-08-10] MEDS: POTASSIUM CL SA 10 MEQ TAB PO ONE (09:13)
[2025-08-10 10:59] VITALS: O2SAT 98
--- NOTE | 2025-08-10 11:53 | P.PN ---
Date of Service: 08/10/25 Subjective: feeling better denies pain afebrile Physical Exam: GEN: Alert, oriented, NAD CV: Regular rate and rhythm, no edema Pulm: Nonlabored respirations on room air ABD: soft, nontender, dressing in place, VICKY drain in place Problem List: Acute perforated appendicitis with intraabdominal abscess and peritonitis s/p lap appy with drainage of intraabdominal abscess (08/05) Reducible umbilical hernia 2cm s/p open repair (08/05) Suspected bacteremic contamination on admission, presents with worsening abdominal pain. Started shortly after eating a meal. CT findings noted consistent with acute appendicitis Dr. Broderick is following. found to have perforated appendix, intrabdominal abscess with reactive proctitis, peritonitis during surgery s/p lap appy with drainage of intraabdominal abscess and open repair of reducible umbilical hernia 2cm VICKY drain placed Advanced to regular diet 08/[address] with PO contrast done; pending read Suspect blood cultures contaminated. 11/01 grew GPC. Doubt true bacteremia. Continue IV zosyn (08/05-) for now. ID consulted; recommending at least 2 weeks abx Leukocytosis resolved, afebrile probiotic while on antibiotics VTE: SCD Code: Full Dispo: Home repeat CT, surgical recs Time Spent Managing Pts Care (In Minutes): 55
--- NOTE | 2025-08-10 12:01 | P.PN ---
Date of Service: 08/10/25 subjective: wbc wnl. denied NVD. afebrile.report bm is more formed than before. Temp Pulse Resp BP Pulse Ox 98.0 F 74 17 151/91 H 98 08/10/25 08:00 08/10/25 08:00 08/10/25 08:00 08/10/25 08:00 08/10/25 08:00 Physical Exam: GEN: Alert, oriented, NAD CV: Regular rate and rhythm, no edema Pulm: Nonlabored respirations on room air ABD: soft, abdominal soreness, nessa seen in two places. VICKY drain seen with very minimal light pink drainage Neuro: Normal speech, normal affect labs: wbc: 10.4, hgb 17.1, bun 6, cr 0.86. albumin 2.1 assessment and planning 1. 1/4 bottle GP bacteremia 2. Acute perforated appendicitis with intraabdominal abscess and peritonitis s/p lap appendectomy with drainage of intraabdominal abscess (08/05) 3. Reducible umbilical hernia 2cm s/p open repair (08/05) 4. leukocytosis ( improved) 5. moderate protein calorie malnourishment 1/4 bottles are growing gram positive cocci in pair and chain. awaiting for sensitivity. recommend zosyn empirically for at least 2 weeks, repeat blood culture until neg. repeat CT abdomen pending will continue to monitor for sign of infection with wbc and fever trend case discussed and in agreement with Dr velez
--- NOTE | 2025-08-10 12:56 | P.PN ---
Subjective Date of Service: 08/10/25 Chief Complaint: acute perforated appendicitis, intrabdominal abscess, peritonitis, colitis Subjective: Tolerating diet, Ambulating, Improving Review of Systems ENT: Unremarkable Respiratory: Unremarkable Cardiovascular: Unremarkable Gastrointestinal: Unremarkable Genitourinary: Unremarkable Musculoskeletal: Unremarkable Integumentary: Unremarkable Neurological: Unremarkable Physical Examination - Vital Signs Temperature: 97.7 F Blood Pressure: 171/73 Pulse: 87 Respirations: 17 Pulse Ox (%): 97 - Physical Exam General: Alert, In no apparent distress, Oriented x3, Cooperative HEENT: PERRLA, EOMI Neck: Supple Cardiovascular: Normal pulses Gastrointestinal: Soft and benign, No rebound, No guarding, Other (VICKY clear) Integumentary: No rashes, No breakdown - Studies Microbiology Data (last 24 hrs): 08/05/25 00:20 Blood - Blood Aerobic Blood Culture - Final No growth in 5 days. 08/05/25 00:20 Blood - Blood Anaerobic Blood Culture - Final No growth in 5 days. 08/05/25 01:03 Blood - Blood Aerobic Blood Culture - Final No growth in 5 days. 08/05/25 01:03 Blood - Blood Gram Stain - Final Assessment And Plan - Plan advance diet abx per ID oob incent. Spir
--- NOTE | 2025-08-10 13:50 | RAD REPORT ---
EXAMINATION: CT Abdomen Pelvis Wo Contrast CLINICAL INDICATION: Male, 59 years old. eval abscess, r/o fistula, s/p appendectomy TECHNIQUE: CT abdomen and pelvis was performed, without IV contrast, as per department protocol. Axia l, sagittal and coronal reconstructions were obtained. One or more of the following dose reduction techniques were used: Automated exposure control, adjustment of the mA and kV according to the patien t size, and iterative reconstruction. Unless otherwise specified, incidental findings do not require dedicated imaging follow-up. COMPARISON: 08/05/2025 FINDINGS: The lack of intravenous contrast limits the sensitivity of this exam for evaluation of solid visceral organs, vascular structures, and retroperitoneum. LOWER CHEST: Trace bilateral pleural effusions larger on the left. LIVER: Normal in size and contour. No focal lesion. BILIARY SYSTEM: No suspicious abnormalities. SPLEEN: Normal size. No focal lesion. PANCREAS: No mass, ductal dilation, or sim-pancreatic fluid. ADRENALS: Normal; no mass. KIDNEYS AND URETERS: Stable exophytic right upper pole 3.6 cm cyst. Normal size and contour. No hydro nephrosis. URINARY BLADDER: Normal contour. GASTROINTESTINAL TRACT: No evidence of bowel obstruction, or free air. Distal colonic diverticulosis without evidence of acute diverticulitis. APPENDIX: Surgically removed. Nonspecific mild soft tissue thickening adjacent to the suture line, wi th an ill-defined ovoid soft tissue density measuring 3.1 x 2.4 x 2.3 cm, intimately associated with adventitia of small bowel loops, does not demonstrate luminal contrast opacification. Surgical d rain present in the pelvis and right lower quadrant, caudal to the collection. Trace fluid in the deep pelvis. LYMPH NODES: No lymphadenopathy. MUSCULOSKELETAL: No acute or suspicious osseous abnormality. ADDITIONAL FINDINGS: None. IMPRESSION: Sequelae of appendicectomy. Ill-defined ovoid soft tissue density just medial to the suture material, grossly associated with small bowel adventitia, could represent a poorly loculated seroma or even a contained leak, although no luminal contrast is present within this region.. Consider short-term fo llow-up CT in 7-10 days. Trace bilateral layering pleural effusions.
[2025-08-11 06:09] LABS: Absolute Lymphocytes (CBC) 1.4 K/uL (0.7-4.9); Hematocrit 52.2 % (39.6-49.0); Hemoglobin 17.5 g/dL (13.6-17.9); MCH 33.2 pg (27.0-35.0); MCHC 33.5 g/dL (32.0-36.0); MCV 99.0 fL (80-100); MPV 7.4 fL (7.6-11.3); Nucleated RBC Absolute Count 0.0 (0-0); Nucleated Red Blood Cells % 0.1 % (0-0); RBC Red Blood Cell Count 5.27 M/uL (4.33-5.43); White Blood Count 10.60 thou/uL (4.3-10.9)
[2025-08-11 06:28] LABS: ALT/SGPT 40.0 U/L (16-61); AST/SGOT 22.0 U/L (15-37); Albumin 2.2 g/dL (3.4-5.0); Albumin/Globulin Ratio 0.5 (1.1-1.8); Alkaline Phosphatase 37.0 U/L (45-117); Anion Gap 10.5 mEq/L (5.0-15.0); BUN Blood Urea Nitrogen 8.0 mg/dL (7-18); Globulin 4.2 g/dL (2.3-3.5); Glucose Level 100.0 mg/dL (74-106); Potassium 3.5 mEq/L (3.5-5.1)
[2025-08-11] MEDS: POTASSIUM CL SA 10 MEQ TAB PO ONE (08:41)
[2025-08-11 08:48] VITALS: TEMP 98
[2025-08-11 12:19] VITALS: BP 138/71
--- NOTE | 2025-08-11 14:57 | P.DS ---
Admission Date: 08/05/25 Discharge Date: 08/11/25 Reason for Admission: acute perforated appendicitis, intrabdominal abscess, peritonitis, colitis Hospital Course: Diagnosis Acute perforated appendicitis with intraabdominal abscess and peritonitis s/p lap appy with drainage of intraabdominal abscess (08/05) Reducible umbilical hernia 2cm s/p open repair (08/05) Patient with a history of hypertension and hyperlipidemia presented to the ER with abdominal pain. CT abdomen and pelvis done in the emergency department showed acute appendicitis. Patient was hospitalized started on IV antibiotics. He was evaluated by general surgery Dr. Broderick who performed laparoscopic appendectomy noted to have perforated appendicitis, with intra-abdominal abscess and peritonitis. Abscess was drained and VICKY drain left in place. Patient had reducible umbilical hernia which was also repaired. Patient was treated with IV antibiotics after the surgery, 1 out of 4 blood culture bottles grew gram- positive cocci which is likely skin contaminant. Repeat blood culture after which showed no growth. Patient had leukocytosis which resolved. No fever. Repeat CT abdomen and pelvis showed Sequelae of appendicectomy and ill-defined ovoid soft tissue density just medial to the suture material. Patient seen and evaluated by Dr. Broderick today and patient deemed stable for discharge. Dr. Broderick plans to follow-up with patient within a week or [address] abdomen and pelvis. Infectious disease evaluated patient and recommended 2 weeks of oral Cipro and Flagyl. Patient has tolerated diet, he is ambulatory and pain is controlled. Patient is deemed stable for discharge. Vital Signs/Physical Exam: Temp Pulse Resp BP Pulse Ox 98 F 75 17 138/71 95 08/11/25 12:00 08/11/25 12:00 08/11/25 12:00 08/11/25 12:00 08/11/25 12:00 General: Alert, In no apparent distress, Oriented x3 HEENT: Mucous membr. moist/pink, Sclerae nonicteric Neck: Supple, JVD not distended Respiratory: Clear to auscultation bilaterally, Normal air movement Cardiovascular: No edema, Regular rate/rhythm, Normal S1 S2 Gastrointestinal: Normal bowel sounds, Soft and benign, Non-distended, Other (VICKY drain in place) Musculoskeletal: No swelling, No tenderness Integumentary: No rashes, No cyanosis Neurological: Normal strength at 5/5 x4 extr Laboratory Data at Discharge: WBC 10.60 thou/uL (4.3-10.9) 08/11/25 05:54 Hgb 17.5 g/dL (13.6-17.9) 08/11/25 05:54 Hct 52.2 % (39.6-49.0) H 08/11/25 05:54 Plt Count 314 thou/uL (152-406) 08/11/25 05:54 PT 15.2 SECONDS (10-13.0) H 08/05/25 01:00 INR 1.36 08/05/25 01:00 APTT 27.3 SECONDS (27.2-37.4) 08/05/25 01:00 Sodium 140 mEq/L (136-145) 08/11/25 05:54 Potassium 3.5 mEq/L (3.5-5.1) 08/11/25 05:54 BUN 8 mg/dL (7-18) 08/11/25 05:54 Creatinine 0.93 mg/dL (0.70-1.30) 08/11/25 05:54 Glucose 100 mg/dL (74-106) 08/11/25 05:54 Magnesium 1.7 mg/dL (1.6-2.4) 08/07/25 06:59 Total Bilirubin 0.4 mg/dL (0.2-1.0) 08/11/25 05:54 AST 22 U/L (15-37) 08/11/25 05:54 ALT 40 U/L (16-61) 08/11/25 05:54 Alkaline Phosphatase 37 U/L (45-117) L 08/11/25 05:54 Lipase 24 U/L (13-75) 08/04/25 23:08 Home Medications: Atorvastatin Calcium 40 mg PO BEDTIME 08/05/25 Bupropion *Xl* [Wellbutrin XL*] 150 mg PO DAILY 08/05/25 Lisinopril/Hydrochlorothiazide [Lisinopril-Hctz 20-12.5 mg Tab] 1 each PO DAILY 08/05/25 Ciprofloxacin HCl 500 mg PO BID #28 tab 08/11/25 Hydrocodone 5/APAP 325 [[place] 5/325*] 1 tab PO Q4H PRN #20 tab 08/11/25 Lactobacillus Acidophilus [Probiotic Acidophilus] 1 each PO BID #20 cap 08/11/25 metroNIDAZOLE [Flagyl] 500 mg PO Q8H #42 tab 08/11/25 New Medications: Ciprofloxacin HCl 500 mg PO BID #28 tab metroNIDAZOLE [Flagyl] 500 mg PO Q8H #42 tab Hydrocodone 5/APAP 325 [[place] 5/325*] 1 tab PO Q4H PRN #20 tab PRN Reason: Pain Scale 5-7 (Moderate) Lactobacillus Acidophilus [Probiotic Acidophilus] 1 each PO BID #20 cap Physician Discharge Instructions: Patient with a history of hypertension and hyperlipidemia presented to the ER with abdominal pain. CT abdomen and pelvis done in the emergency department showed acute appendicitis. Patient was hospitalized started on IV antibiotics. He was evaluated by general surgery Dr. Broderick who performed laparoscopic appendectomy noted to have perforated appendicitis, with intra-abdominal abscess and peritonitis. Abscess was drained and VICKY drain left in place. Patient was treated with IV antibiotics after the surgery, 1 out of 4 blood culture bottles grew gram-positive cocci which is likely skin contaminant. Repeat blood culture after which showed no growth. Patient had leukocytosis which resolved. No fever. Repeat CT abdomen and pelvis showed Sequelae of appendicectomy and ill- defined ovoid soft tissue density just medial to the suture material. Patient seen and evaluated by Dr. Broderick today and patient deemed stable for discharge. Dr. Broderick plans to follow-up with patient within a week or [address] abdomen and pelvis. Infectious disease evaluated patient and recommended 2 weeks of oral Cipro and Flagyl. Patient has tolerated diet, he is ambulatory and pain is controlled. Patient is deemed stable for discharge. Diet: AHA Activity: Ad moreno Followup: Jeffery Broderick MD [ACTIVE - CAN ADMIT] - 1-2 Weeks Lori Lucero [Primary Care Provider] - 1-2 Weeks Time spent managing pt's care (in minutes): 38
--- NOTE | 2025-08-11 18:57 | PN ---
Subjective: The patient feeling much better, being discharged today. Denies any problems. Able to eat without any problems. Objective: Vital Signs: Temperature 98, pulse 75, respirations 17, blood pressure 138/71. Lungs: Basal crackles. Heart: S1, S2. Regular. Abdomen: Soft, nontender. Bowel sounds present. Extremity: No edema. Laboratory Data: Shows WBC 10.6, hemoglobin 17.5, platelets are 314. Chemistry shows BUN of 8, crea tinine 0.9, albumin level is 2.2. Cultures are negative to date. Assessment And Plan: 1. Acute perforated appendicitis with intraabdominal abscess and peritonitis, status post lap appende ctomy with drainage of intraabdominal abscess done on 08/05. 2. Leukocytosis, improved. 3. Moderate protein-calorie malnourishment. 4. Blood culture showing gram-positive cocci in pairs and chains done on 08/05. We will recommend to change the patient to Cipro and Flagyl to be discharged home for 2 weeks. Continue supportive care and monitor signs of infection. Return to clinic if patient develops diarrhea or nausea, vomiting. We will follow the patient as needed. NF/MODL Voice ID: [id number] Report ID: [id number]
--- NOTE | 2025-08-14 21:04 | OP ---
Date of Procedure: 08/05/2025 Surgeon: Jeffery Broderick MD Preoperative Diagnoses: Acute abdominal pain, peritonitis. Postoperative Diagnoses: Perforated acute appendicitis with intraabdominal abscess, peritonitis and also umbilical hernia. Procedure: Laparoscopic appendectomy with drainage of intraabdominal abscess, open umbilical hernia repair. Estimated Blood Loss: Less than 50 cc. Specimens: Perforated appendix. Findings: Perforated appendix with intraabdominal abscess with reactive proctitis. The patient also had umbilical hernia. In intraabdominal abscess, we irrigated the area with at least 8 L of saline. Anesthesia: General plus local. Drains: VICKY #10. Complications: None. Indications: This is a case of a male, who came to us with acute abdominal pain, peritonitis, diagno sed with acute appendicitis. The benefits, alternatives, and risks were fully explained, which inclu de, but not limited to infection, bleeding, damage to adjacent structures, anesthesia complication, r ecurrence, [place], and even . He also understands this may not relieve any symptoms, he might need more than one surgical invention, recurrences of the hernia, and then he said he wants to fix as we r emove the appendix. Description Of Procedure: The patient was brought to the operating room, placed in supine position. Anesthesia was induced without complication. Abdominal area was prepped and draped in a sterile fas hion. A time-out was called. Local anesthesia was applied followed by sharp incision of the skin in the periumbilical region. Immediately, we found a hernia and the omental fat was removed, reduced i nto the abdomen after proper evaluation. We noticed that already when patient came in with pus comin g through the belly button. So, we knew at that moment that we may be dealing with a ruptured append ix. So we cleaned the fascial edges, put Vicryl #1 inside of the fascia. Kourtney trocar was carefull y introduced. Pneumoperitoneum was obtained. We placed 2 more trocars, 5 mm each one of them in the suprapubic and left lower quadrant and that is when we went and took a look at the area of the appen lizeth. It looked ruptured. It looked like abscess already. This was not just in the last few hours. It looked like fibrin present in all the intestines. So we had to irrigate this with 8 L, probably 9 L of water just to get that area clean. After that, we managed to see partial retrocecal appendix that we used the ligature to help us with the dissection, making sure the ureters, and the rest of th e intestines were protected. We noticed that the appendix was long, but the base of the appendix see ms to be spared. So, we created a window in the base of the appendix, transected that with an Endo-G IA 45 mm nonvascular. The mesoappendix was transected with the LigaSure. After that, once again, we continued with the profuse irrigation until clear. I left a VICKY drain in the right lower quadrant ar ea to help us with the management of the abdomen in the future, drained the abscess. It was exiting through one of the trocar sites. After that, we checked for hemostasis. No bleeding. No bowel leak . The stump looks nice and intact. So, at that moment, I proceeded then to deflate the pneumoperito neum, closed the fascia with #1 Vicryl, irrigated subcutaneous tissue, closed the skin with nessa a nd the VICKY was connected to bulb suction. The patient tolerated the procedure well patient. The radha ent sent to recovery in stable condition. This patient will require long-term antibiotics. May have to be taken to surgery again to clean the area if we see the abscess does not resolve. We are going to call Infectious Disease to help us with management of the antibiotics. TANIA/LIANNA Voice ID: [id number] Report ID: [id number]
== END 2025-08-11 16:30 | disposition home or self-care (01) | DRG 398 ==
LOC: ER 22:25 → ERHOLD 08-05 03:34 → 4TH 08-05 04:13
PROVIDERS: ADMIT Family Medicine; ATTEND Internal Medicine
PROC: 0WQF0ZZ Repair Abdominal Wall, Open Approach (ICD-10-PCS; 2025-08-05)
PROC: 0DTJ4ZZ Resection of Appendix, Percutaneous Endoscopic Approach (ICD-10-PCS; principal; 2025-08-05 15:45)
PROC: 0W9G40Z Drainage of Peritoneal Cavity with Drainage Device, Percutaneous Endoscopic Approach (ICD-10-PCS; 2025-08-05 15:45)
DX: K35.33 Acute appendicitis with perforation, localized peritonitis, and gangrene, with abscess (principal); E44.0 Moderate protein-calorie malnutrition; E78.5 Hyperlipidemia, unspecified; I10 Essential (primary) hypertension; N28.9 Disorder of kidney and ureter, unspecified; K42.9 Umbilical hernia without obstruction or gangrene; D72.829 Elevated white blood cell count, unspecified; K52.9 Noninfective gastroenteritis and colitis, unspecified; Z68.28 Body mass index [BMI] 28.0-28.9, adult; Z79.899 Other long term (current) drug therapy
CPT/HCPCS: 36415; 74176; 74177; 80053; 83605; 83690; 83735; 85025; 85610; 85730; 87040; 87205; 88302; 88304; 94010; 96361; 96365; 96367; 96375; 99285; J0696; J1100; J2003; J2250; J2405; J2543; J2704; J2710; J3010; J3475; J7030; J7120; J7799; Q9967